=== PATIENT | male | born 1960 | race Caucasian/White ===

== ENCOUNTER 2019-06-10 05:35 | Day surgery (SDC) | payer BC ==
[2019-06-10] VITALS (16 sets, daily range): BP systolic 145–192; BP diastolic 73–105; PULSE 55–82; RESP 12–22; Ht 170.2 cm; Wt 84.8 kg
[~2019-06-10] VITALS: Ht 170.2 cm; Wt 84.8 kg
[~2019-06-10 05:35] MED LIST: AMLO5TAB4 PO; LISI1TAB8 PO
[2019-06-10] MEDS ORDERED: SOD CHLORIDE 0.9% 1,000 ML IV SCH (06:00)
[2019-06-10] MEDS ORDERED: CEFAZOLIN 2 GM/50 ML (PMX) 50 ML IVPB ONE (06:00)
[2019-06-10] MEDS ORDERED: SEVOFLURANE 15 MIN ONE (07:00)
[2019-06-10] MEDS ORDERED: BUPIVACAINE 0.25%/EPI (SDV) 10 ML INJ ONE (07:11)
[2019-06-10] MEDS ORDERED: MIDAZOLAM 1 MG/ML 2 ML INJ ONE (08:08)
[2019-06-10] MEDS ORDERED: LIDOCAINE 2% (SDV) 5 ML INJ ONE (09:21)
[2019-06-10] MEDS ORDERED: PROPOFOL 20 ML ONE (09:21)
[2019-06-10] MEDS ORDERED: CEFAZOLIN 1 GM INJ ONE (09:22)
[2019-06-10] MEDS ORDERED: ONDANSETRON 4 MG INJ ONE (09:22)
[2019-06-10] MEDS ORDERED: HYDROCODONE/APAP (5/325) TAB PO PRN ×2 (09:30)
[2019-06-10] MEDS ORDERED: IBUPROFEN 600 MG TAB PO PRN (09:30)
[2019-06-10] MEDS ORDERED: morphine 2 MG INJ IV PRN (09:30)
[2019-06-10] MEDS ORDERED: ONDANSETRON 4 MG INJ IV PRN ×2 (09:30→10:00)
[2019-06-10] MEDS ORDERED: KETOROLAC 30 MG INJ IV PRN ×2 (09:30→10:00)
[2019-06-10] MEDS ORDERED: GLYCOPYRROLATE 0.4 MG INJ ONE (09:43)
[2019-06-10] MEDS ORDERED: NEOSTIGMINE 3 MG/3 ML SYRINGE ONE (09:43)
[2019-06-10] MEDS ORDERED: HYDROmorphONE 1 MG/5 ML IV SYRINGE IV ONE (09:56)
[2019-06-10] MEDS ORDERED: FENTAnyl 50 MCG/ML VIAL IV PRN (10:00)
[2019-06-10] MEDS ORDERED: MEPERIDINE 25 MG INJ IV PRN (10:00)
[2019-06-10] MEDS ORDERED: hydrALAzine 20 MG INJ IV PRN (10:00)
[2019-06-10] MEDS ORDERED: DIPHENHYDRAMINE 50 MG INJ IV PRN (10:00)
[2019-06-10] MEDS ORDERED: POLYMYXIN/BACITRACIN 1L IRRIG ONE (10:00)
[2019-06-10] MEDS ORDERED: HYDROmorphONE 1 MG/5 ML IV SYRINGE IV PRN (10:00)
[2019-06-10] MEDS ORDERED: METOCLOPRAMIDE 10 MG INJ IV PRN (10:00)
[2019-06-10] MEDS: HYDROmorphONE 1 MG/5 ML IV SYRINGE IV PRN ×2 (10:06→10:13)
== END 2019-06-10 12:25 | disposition home or self-care (01) ==
LOC: SDS 05:35
PROVIDERS: ATTEND Surgery
DX: K43.9 Ventral hernia without obstruction or gangrene (principal); I10 Essential (primary) hypertension
CPT/HCPCS: 49652; J0690; J1170; J1885; J2250; J2405; J2710; J3010; Z7512; Z7610; 88302